=== PATIENT | female | born 1990 | race African-American/Black ===

== ENCOUNTER 2016-07-22 18:58 | Emergency (ER) | payer OTHER | END 2016-07-22 19:52 | disposition left against medical advice (07) | LOC: EMS 19:00 | DX: R10.9 Unspecified abdominal pain (principal); Z53.21 Procedure and treatment not carried out due to patient leaving prior to being seen by health care provider ==

== ENCOUNTER 2016-07-24 12:35 | Emergency (ER) | payer OTHER ==
[~2016-07-24] VITALS: Ht 167.6 cm; Wt 172.7 kg
[2016-07-24 13:31] LABS: GLUCOSE, URINE (UA) NEGATIVE (NEGATIVE); KETONES,URINE NEGATIVE (NEGATIVE); LEUKOCYTE ESTERASE ,URINE NEGATIVE (NEGATIVE); OCCULT BLOOD,URINE NEGATIVE (NEGATIVE); PH,URINE 6.5 (5.0-8.0); PROTEIN,URINE NEGATIVE (NEGATIVE)
[2016-07-24 13:36] LABS: ADD UA MICROSCOPIC YES; APPEARANCE,URINE SLIGHTLY CLOUDY (CLEAR)
[2016-07-24 13:37] LABS: RBC,URINE None Seen /HPF (0-2); WBC,URINE 0-2 /HPF (0-5)
[2016-07-24 13:38] LABS: SQUAMOUS EPITHELIAL CELL,UR Moderate /LPF (None Seen)
[2016-07-24 14:47] VITALS: BP 132/87
== END 2016-07-24 14:49 | disposition home or self-care (01) ==
LOC: EMS 12:39
DX: S33.5XXA Sprain of ligaments of lumbar spine, initial encounter (principal); Z88.5 Allergy status to narcotic agent; X58.XXXA Exposure to other specified factors, initial encounter; Y93.89 Activity, other specified; Y92.89 Other specified places as the place of occurrence of the external cause; Y99.2 Volunteer activity
CPT/HCPCS: 99284